=== PATIENT | female | born 1955 | race Caucasian/White ===

== ENCOUNTER → 2016-06-10 | Outpatient (CLI) | payer OTHER ==
[~2016-06-10] MED LIST: LEVO137T3 PO
== END | disposition home or self-care (01) ==
LOC: C.PAPS 10:37
PROVIDERS: ATTEND Obstetrics & Gynecology
DX: Z01.419 Encounter for gynecological examination (general) (routine) without abnormal findings (principal)

== ENCOUNTER → 2017-06-30 | Outpatient (CLI) | payer OTHER ==
--- NOTE | 2017-06-30 11:08 | DIAGNOSTIC IMAGING REPORT ---
CERVICAL SPINE 5 VIEWS CLINICAL HISTORY: Neck pain. FINDINGS: AP, lateral, bilateral oblique, and odontoid views of the cervical spine are obtained. No prior studies are available for comparison at the time of dictation. The skeletal structures are osteopenic. There is no radiographic evidence of fracture or subluxation. The odontoid process and lateral masses appear intact as seen on the open-mouth view. Mild degenerative change is noted at the atlantodental articulation. There is straightening of the cervical lordosis with reversal centered at C5-C6. Vertebral body height is maintained throughout the cervical spine. Minimal anterolisthesis is seen at C3-C4 and C4-C5. Minimal retrolisthesis is present at C5-C6. Anterior osteophytes are seen in the lower cervical region. The spinolaminar line is maintained. The spinous processes appear intact. The neural foramina appear widely patent on the oblique views. Mild disc space narrowing is seen at C5-C6 and C6-C7. The remaining disc spaces are preserved. No large posterior disc osteophyte complex is identified. The prevertebral soft tissues are within normal limits. Partially imaged apical lung parenchyma appears clear. IMPRESSION: 1. No acute bony abnormality is seen involving the cervical spine. 2. Osteopenia and mild spondylotic change as above. Dictated: 06/30/2017 10:55 AM Transcribed: 06/30/2017 11:08 AM Servando Electronically signed by: Rajesh Liu M.D. 06/30/2017 11:09 AM Dictated Date/Time: 06/30/2017 10:55 AM
--- NOTE | 2017-06-30 11:09 | DIAGNOSTIC IMAGING REPORT ---
LUMBAR SPINE 5 VIEWS CLINICAL HISTORY: Low back pain. FINDINGS: Five views of the lumbar spine are obtained. No prior studies are available for comparison at the time of dictation. The skeletal structures are osteopenic. There is no radiographic evidence of fracture or malalignment. Vertebral body height and alignment are maintained throughout the lumbar spine. Anterior osteophytes are seen throughout. The transverse and spinous processes appear intact. There is no evidence of spondylolysis. The disc spaces appear maintained. The bony pelvis appears intact as imaged. Mild sclerotic change is noted in the sacroiliac joints. Surgical clips are present in the pelvis. No bowel obstruction is seen. IMPRESSION: 1. No acute bony abnormality is seen involving the lumbar spine. 2. Osteopenia and mild spondylotic change as above. Dictated: 06/30/2017 10:54 AM Transcribed: 06/30/2017 11:09 AM Servando Electronically signed by: Rajesh Liu M.D. 06/30/2017 11:15 AM Dictated Date/Time: 06/30/2017 10:54 AM
== END | disposition home or self-care (01) ==
LOC: C.RAD 10:25
PROVIDERS: ATTEND Nurse Practitioner Family
DX: M79.602 Pain in left arm (principal); Z98.890 Other specified postprocedural states

== ENCOUNTER → 2017-07-14 | Outpatient (CLI) | payer OTHER ==
--- NOTE | 2017-07-14 15:18 | MAMMOGRAPHY REPORT ---
BILATERAL DIGITAL SCREENING MAMMOGRAM TOMOSYNTHESIS WITH CAD: 07/14/2017 CLINICAL HISTORY: Routine screening examination. TECHNIQUE: Breast tomosynthesis in addition to standard 2D mammography was performed. Current study was also evaluated with a Computer Aided Detection (CAD) system. COMPARISON: Comparison is made to exams dated: 04/30/2016 mammogram, 04/28/2015 mammogram, 12/06/2013 mammogram, 12/01/2012 mammogram, 11/01/2011 mammogram, and 10/15/2010 mammogram - [facility] nter. BREAST COMPOSITION: There are scattered areas of fibroglandular density in both breasts. FINDINGS: No suspicious mass, architectural distortion or cluster of microcalcifications is seen. IMPRESSION: ACR BI-RADS CATEGORY 1: NEGATIVE There is no mammographic evidence of malignancy. A 1 year screening mammogram is recommended. The pa tient will receive written notification of the results. Approximately 10% of breast cancers are not detected with mammography. A negative mammographic report should not delay biopsy if a clinically suggestive mass is present. Gissel forbes/penbelia:07/14/2017 08:50:01 Bender Helper: Jess RAMSAY(Alessandro)(M), [facility] letter sent: Normal 1/2 BI-RADS Code: ACR BI-RADS Category 1: Negative
== END | disposition home or self-care (01) ==
LOC: C.MAMM 07:07
PROVIDERS: ATTEND Obstetrics & Gynecology
DX: Z12.31 Encounter for screening mammogram for malignant neoplasm of breast (principal)

== ENCOUNTER 2020-07-25 08:28 | Inpatient (IN) ==
--- NOTE | 2020-07-10 16:25 | PAT Medication Instructions ---
Medication Instructions Date of Service July 10, 2020 Home Medications levothyroxine 137 mcg tablet 137 mcg PO QAM atorvastatin 10 mg PO HS Take morning of surgery With a small sip of water, OTHERWISE NOTHING TO EAT OR DRINK AFTER MIDNIGHT: levothyroxine 137 mcg tablet 137 mcg PO QAM Take evening before surgery atorvastatin 10 mg PO HS Other Notes If you have any questions please call us at [phone] or [phone] or [phone] or [phone]
--- NOTE | 2020-07-11 12:08 | Anesthesiology Consultation ---
Date of Service July 11, 2020 Assessment & Plan (1) Encounter for pre-operative examination: COVID Status: As of 07/11 assessment, patient denies travel to endemic area, known exposure/sick contacts, or symptoms of COVID19. Patient instructed that they and their household members must follow strict social distancing guidelines, wear a mask in public and avoid travel/events/gatherings for 14 days prior to surgery. Preoperative COVID19 testing to be completed prior to surgery per surgeon's arrangements (pt reports 07/18 at [facility] [place] Patient made aware to self- isolate as much as possible between COVID testing and surgery. Chart Review Chart Review: Acceptable Risk for Surgery and Patient seen in Pre Admission Testing Teaching & Discussion Instructed NPO after midnight before surgery, except medications with 15 cc of water. Medication instructions provided according to the PAT guidelines. History Surgery Operation Date: 06/21/20 07:45 Proposed Procedures p L4-L5 Decompression and Fusion Spinal Cord Monitoring - Kasi Clarke DO Operation Date: 07/25/20 10:05 Proposed Procedures p L4-L5 Decompression Fusion, Spinal Cord Monitoring - Kasi Clarke DO Height/Weight Height: 5 ft 3 in Weight: 60.6 kg Allergies Allergy/AdvReac Type Severity Reaction Status Date / Time bee venom protein (honey bee) Allergy Severe Anaphylaxis Verified 07/07/20 08:26 latex Allergy Intermediate REDNESS, Verified 07/07/20 08:26 ITCHY Sulfa (Sulfonamide Allergy Intermediate HIVES Verified 07/07/20 08:26 Antibiotics) erythromycin base Allergy Mild VOMITING Verified 07/07/20 08:26 codeine AdvReac Mild NAUSEA Verified 07/07/20 08:26 Medications Home Medications Medication Instructions Recorded Confirmed Last Taken levothyroxine 137 mcg tablet 137 mcg PO QAM #90 tab 02/18/19 07/07/20 Unknown atorvastatin 10 mg PO HS 05/30/20 07/07/20 Unknown Past Medical History Medical History (Updated 07/12/20 @ 08:54 by Deyvi Marte) Cancer SQUAMOUS CELL EXCISION Hyperlipidemia Recently started on statin Hypothyroidism Kidney stones Exercise / Class Metabolic Activity II 4-5 Yardwork/Stairs/Walk up hill Past Family History Family History Mother Diabetes Hypertension Renal cell carcinoma Sister Ovarian cancer Aunt Breast cancer Family/Other Myocardial infarction Denies family history of Prostate cancer Colorectal cancer Past Surgical History Surgical History History of back surgery LOWER BACK 2019 History of breast surgery REMOVAL LYMPH NODE-BENIGN History of carpal tunnel release 2007 History of colonoscopy History of neck surgery 2011 History of suburethral sling procedure History of tubal ligation Past Anesthesia History No Hx of Anesthesia Complications and No Family Hx of Anesthesia Complications History of PONV No Hx of PONV and No Hx of Motion Sickness Social History Smoking Status: Former smoker Do You Dip or Chew Tobacco: No Smoking End Date: QUIT Hx Alcohol Use: Yes Alcohol type: wine and hard liquor alcohol intake frequency: holidays/special occasions only Alcohol Intake Frequency Comment: RARELY Hx Substance Use: No Review of Systems Pt denies any recent chest pain, shortness of breath, palpitations, cough, fever, URI, or uncontrolled acid reflux. Physical Exam Vital Signs BP: 147/86 P: 77bpm SPO2: 97% RA T: 98.1 F R: 16 ENMT Mouth: + dental restorations (few crowns on molars); no chipped teeth and no loose teeth Thyromental Distance: < 3.5 Finger Breadths (3) Mallampati Class: II Neck neck extension not limited (but some pain with full extension) Respiratory normal respiratory effort, lungs clear to auscultation Cardiovascular RRR, no murmur, no edema Testing Laboratory Results 07/11/20 12:12 07/11/20 12:12 PT 10.0 Seconds (9.0-12.0) 07/11/20 12:12 INR 1.0 (0.9-1.1) 07/11/20 12:12 APTT 24.5 Seconds (21.0-31.0) 07/11/20 12:12 Urine Color Yellow 07/11/20 Unknown Urine Appearance Clear (Clear) 07/11/20 Unknown Urine pH 6.5 (4.5-7.5) 07/11/20 Unknown Ur Specific [place] 1.008 (1.000-1.030) 07/11/20 Unknown Urine Protein Negative (Negative) 07/11/20 Unknown Urine Glucose (UA) Negative (Negative) 07/11/20 Unknown Urine Ketones Negative (Negative) 07/11/20 Unknown Urine Nitrite Negative (Negative) 07/11/20 Unknown Ur Leukocyte Esterase Negative (Negative) 07/11/20 Unknown Blood Type AB Negative 07/11/20 12:12 Antibody Screen NEGATIVE 07/11/20 12:12 Electrocardiogram Date: 07/11/20 Findings: + NSR @ (73bpm) Diffuse nonspecific ST abnormality. No significant change compared to 10/23/18. Chest X-Ray Date: 07/11/20 Findings: + NAD
--- NOTE | 2020-07-11 12:51 | XRay Report ---
XR chest Pre-admission PA/Lat CLINICAL HISTORY: Preoperative chest COMPARISON STUDY: 12/05/2015 FINDINGS: The heart is normal in size. There is no failure. There is no focal pulmonary consolidation . There are no pleural effusions. There is aortic tortuosity.[ IMPRESSION: No active disease in the chest. ACT 112: Negative or not required by law. Electronically signed by: Surendra Arzate M.D. 07/11/2020 12:50 PM
[2020-07-11 13:36] LABS: Basophils # (auto) 0.05 K/uL (0-0.2); Eosinophils # (auto) 0.21 K/uL (0-0.5); Eosinophils % (auto) 4.2 %; Hematocrit (blood only) 40.1 % (37-47); Hemoglobin 13.6 g/dL (12.0-16.0); Immature Granulocytes # (auto) 0.01 K/uL (0.00-0.02); Immature Granulocytes % (auto) 0.2 %; Lymphocytes # (auto) 2.07 K/uL (1.2-3.4); Mean Corpuscular Hemoglobin 31.3 pg (25-34); Mean Corpuscular Hgb Conc 33.9 g/dL (32-36); Mean Corpuscular Volume 92.4 fL (80-100); Mean Platelet Volume 9.5 fL (7.4-10.4); Monocytes # (auto) 0.45 K/uL (0.11-0.59); Monocytes % (auto) 8.9 %; Neutrophils # (auto) 2.26 K/uL (1.4-6.5); Neutrophils % (auto) 44.7 %; Platelet Count 315 K/uL (130-400); RDW Coefficient of Variation 13.3 % (11.5-14.5); RDW Standard Deviation 45.5 fL (36.4-46.3); Red Blood Count 4.34 M/uL (4.2-5.4); White Blood Count 5.05 K/uL (4.8-10.8)
[2020-07-11 13:50] LABS: Appearance Urine Clear (Clear); Bilirubin Urine Negative (Negative); Blood Urine Negative (Negative); Color Urine Yellow; Glucose Urine UA Negative (Negative); Ketones Urine Negative (Negative); Leukocyte Esterase Urine Negative (Negative); Nitrite Urine Negative (Negative); Protein Urine Negative (Negative); Specific Gravity Urine 1.008 (1.000-1.030); Urobilinogen Urine Negative (Negative); pH Urine 6.5 (4.5-7.5)
[2020-07-11 13:53] LABS: Partial Thromboplastin Ratio 0.9; Partial Thromboplastin Time 24.5 Seconds (21.0-31.0)
--- NOTE | 2020-07-11 13:58 | Electrocardiogram Report ---
Test Reason : Blood Pressure : / mmHG Vent. Rate : 073 BPM Atrial Rate : 073 BPM P-R Int : 138 ms QRS Dur : 088 ms QT Int : 410 ms P-R-T Axes : -27 053 -47 degrees QTc Int : 451 ms Normal sinus rhythm Diffuse Nonspecific ST abnormality Abnormal ECG When compared with ECG of 23-OCT-2018 09:03, No significant change Confirmed by Alberto Bella ([id number]) on 07/11/2020 1:58:12 PM Referred By: Kasi Clarke Confirmed By:Alberto Bella
[2020-07-11 14:08] LABS: BUN Creatinine Ratio 17.6 (10-20); Calcium 9.1 mg/dl (8.5-10.1); Creatinine Clr Calc Pharmacy 80.7 ml/min; Est GFR (African American) 113.1; Est GFR (Non-African American) 97.5; Potassium 3.7 mmol/L (3.5-5.1)
[~2020-07-25 08:28] MED LIST changes: +ACETAMINOPHEN 500 MG TAB PO SCH; +CeleBREX 200 MG CAP PO SCH; +GABAPENTIN 600 MG DOSE PO SCH; -LEVO137T3 PO; +LR 15ML/HR IV SCH; +ceFAZolin 1000MG 1,000 MG/7.5 ML SYR IV SCH
[2020-07-25] MEDS ORDERED: MEPERIDINE HCL 25 MG/ML CARP/VIAL IV PRN (09:22)
[2020-07-25] MEDS ORDERED: PHENYLEPHRINE 100MCG/ML 5ML SYR IV PRN (09:22)
[2020-07-25] MEDS ORDERED: ATROPINE SULFATE 0.1 MG/ML 10ML SYR IV PRN (09:22)
[2020-07-25] MEDS ORDERED: ePHEDrine sulfate 50 MG/ML AMP IV PRN (09:22)
[2020-07-25] MEDS ORDERED: HYDROmorphone INJ 1 MG/ML SYRINGE IV PRN ×2 (09:22→13:19)
[2020-07-25] MEDS ORDERED: ONDANSETRON INJ 2 MG/ML 2 ML VIAL IV PRN ×2 (09:22→13:19)
[2020-07-25] MEDS ORDERED: LABETALOL HCL IV 5 MG/ML 20ML IV PRN (09:22)
[2020-07-25] MEDS ORDERED: MIDAZOLAM HCL 1 MG/ML 2ML VIAL ONE (09:33)
[2020-07-25] MEDS ORDERED: fentaNYL citrate 100 MCG/2 ML VIAL ONE (09:33)
--- NOTE | 2020-07-25 09:57 | History & Physical Bridge Note ---
Date of Service July 25, 2020 History & Physical Bridge Note I have examined the patient, reviewed the History & Physical and in the interval since the performance of the History & Physical I have noted the following changes of clinical significance: no changes noted
--- NOTE | 2020-07-25 09:58 | History & Physical Report ---
Date of Service July 25, 2020 Assessment & Plan (1) Neurogenic claudication due to lumbar spinal stenosis: Admission and Anticipated Discharge Date Admission Date: L4-L5 decompression fusion History of Present Illness Chief Complaint: Back and bilateral leg pain Primary Care Provider: LIZZY Hurd This is a 65-year-old female who presents with chronic persistent back and bilateral leg pain. After failing course of nonoperative care is here for surgical invention. Allergies Allergy/AdvReac Type Severity Reaction Status Date / Time bee venom protein (honey bee) Allergy Severe Anaphylaxis Verified 07/25/20 08:46 latex Allergy Intermediate REDNESS, Verified 07/25/20 08:46 ITCHY Sulfa (Sulfonamide Allergy Intermediate HIVES Verified 07/25/20 08:46 Antibiotics) erythromycin base Allergy Mild VOMITING Verified 07/25/20 08:46 codeine AdvReac Mild NAUSEA Verified 07/25/20 08:46 Home Medications Medication Instructions Recorded Confirmed Type levothyroxine 137 mcg tablet 137 mcg PO QAM #90 tab 02/18/19 07/25/20 History atorvastatin 10 mg PO HS 05/30/20 07/25/20 History Past Med/Surg History Medical History (Updated 07/25/20 @ 09:58 by Kasi Clarke DO) Cancer SQUAMOUS CELL EXCISION Hyperlipidemia Recently started on statin Hypothyroidism Kidney stones Surgical History History of back surgery LOWER BACK 2019 History of breast surgery REMOVAL LYMPH NODE-BENIGN History of carpal tunnel release 2007 History of colonoscopy History of neck surgery 2011 History of suburethral sling procedure History of tubal ligation Family History Mother Diabetes Hypertension Renal cell carcinoma Sister Ovarian cancer Aunt Breast cancer Family/Other Myocardial infarction Denies family history of Prostate cancer Colorectal cancer Social History Smoking Status: Former smoker Smoking End Date: QUIT ; Second Hand Exposure: No; Do You Dip or Chew Tobacco: No; Hx Alcohol Use: Yes Alcohol type: wine and hard liquor Hx Substance Use: No Preferred Language: Yakut Communication Ability: Effective [employer] Supervisor Required: No Beliefs That Will Affect Care: None Current Living Situation: Family Other Information That Helps Us Care for You: No Feels Safe at Home: Yes Safety Concerns: Feels Safe At This Time Assistive Devices: Glasses Physical Exam Physical Exam: Patient is alert and oriented Heart regular rhythm Lungs clear to auscultation Results & Data ([facility]) Vital Signs (Past 12 Hours) Vital Signs Temp Pulse Resp BP Pulse Ox 07/25/20 08:52 37.2 C 80 18 168/87 H 96
[2020-07-25] MEDS ORDERED: BUPIVACAINE/EPINEPHRINE 0.5% MPF 1:200,000 30 ML VIAL ONE (10:02)
[2020-07-25] MEDS ORDERED: BACITRACIN INJ 50,000 UNIT VIAL ONE (10:03)
[2020-07-25] MEDS ORDERED: PROPOFOL IV EMULSION 10 MG/ML 20 ML VIAL IV ONE (10:44)
[2020-07-25] MEDS ORDERED: ROCURONIUM BROMIDE 10 MG/ML 5 ML VIAL IV ONE (10:44)
[2020-07-25] MEDS ORDERED: LIDOCAINE HCL 2% 2 ML VIAL/AMP(20MG/ML) INFIL ONE (10:44)
[2020-07-25] MEDS ORDERED: DEXAMETHASONE SOD INJ 4 MG/ML VIAL ONE (10:45)
[2020-07-25] MEDS ORDERED: ONDANSETRON INJ 2 MG/ML 2 ML VIAL ONE (10:45)
[2020-07-25] MEDS ORDERED: ePHEDrine sulfate 50 MG/ML AMP ONE (10:57)
[2020-07-25] MEDS ORDERED: FLOSEAL HEMOSTATIC MATRIX 10ML TOP ONE (11:34)
[2020-07-25] MEDS ORDERED: GLYCOPYRROLATE 0.2 MG/ML VIAL ONE (11:40)
[2020-07-25] MEDS ORDERED: NEOSTIGMINE METHYLSULFATE 1 MG/ML 10ML VIAL ONE (11:40)
--- NOTE | 2020-07-25 11:47 | Operative Report ---
Post Operative Report Pre & Post Diagnosis Operation Date: 06/21/20 07:45 <No data on this case meets the specified criteria> Operation Date: 07/25/20 10:05 Pre-Op Diagnosis: Neurogenic Claudication due to Lumbar Spinal Stenosis Post-Op Diagnosis: Neurogenic Claudication due to Lumbar Spinal Stenosis I identified the patient and participated in the time-out.: Yes Procedure Operation Date: 06/21/20 07:45 <No data on this case meets the specified criteria> Operation Date: 07/25/20 10:05 Actual Procedures #1 Revision decompression with bilateral medial facetectomies and foraminotomies L3-4 and L4-5 per #2 posterior spinal fusion L4-5 per #3 placement posterior instrumentation L4-5 per #4 interbody fusion L4-5 per #5 placed a peek cage 10 x 22 mm at L4-5 per #6 placement of locally harvested morselized autograft in the posterior gutters. #7 placement infuse collagen sponge, master graft in the posterior lateral gutters and osteopenic body space. Surgeon Kasi Clarke, Registered Dental Assistant Rda [place] De Leon Estimated Blood Loss 50 Findings Consistent with Post-Op Diagnosis Specimens None Indications This is a 65-year-old female who presents with above-mentioned diagnosis after failing course of nonoperative care is here for the above-mentioned procedure. Description of Procedure Patient was met with identified informed consent obtained. Patient was then taken to the operative suite underwent a patient placed in a prone position the [facility] top Shar frame. All bony prominences well-padded eyes inspected to ensure no external pressure placed upon the. This point the lumbar spine was prepped and draped no sterile fashion. Sharp dissection with the assistance of Bovie cautery performed down to and exposing the remaining lamina and transverse processes of L4 and L5. And then performed a revision complete laminectomy of L4 partial laminectomy of L3 including bilateral medial facetectomies and foraminotomies addressing severe spinal stenosis. Pedicle screws were then placed in L4 and L5 bilaterally with assistance of fluoroscopy and appropriate sized julio placed. By way of a transforaminal approach on the right a complete discectomy was performed endplates curetted to subcortical being bone and a 10 x 22 mm peek cage filled with osteobone graft tapped position. The rods were then locked in final position bilaterally. The transverse processes of L4 and L5 burred to subcortical bleeding bone. Infuse collagen sponge master graft local autograft was placed in the posterior gutters. 15 round ESTHER drain inserted. The incision was then closed with 1 Vicryl to fascia 2-0 Vicryl subcutaneously and 4 Monocryl for final skin closure. Steri-Strip sterile dressings placed. Patient will continue PACU stable condition. Please note spinal cord monitoring was utilized at the procedure no changes noted. Bee De Leon was present during the entire surgery and while the patient positioning complex portions of the surgery and final skin closure. I attest to the content of the Intraoperative Record and any orders documented therein. Any exceptions are noted below.
[2020-07-25] MEDS: fentaNYL citrate 100 MCG/2 ML VIAL IV PRN ×3 (12:14→12:45)
--- NOTE | 2020-07-25 12:22 | Fluoroscopy Report ---
FL lumbar spine 2-3V HISTORY: 65 years-old Female L4-L5 DECOMPRESSION AND FUSION chronic low back pain. Status post decom pression and fusion COMPARISON: Lumbar spine MRI 04/10/2020. TECHNIQUE: 2 spot fluoroscopic images of the lumbar spine were obtained utilizing 21.5 seconds fluoro scopy time FINDINGS: Posterior interbody julio and screw fusion with discectomy changes at L4-L5. There remains a few millim eters of posterior listhesis L4 on L5 with otherwise satisfactory alignment. No acute fracture or ret ained foreign body. Multilevel spondylitic spurring. IMPRESSION: Fluoroscopic assistance as above. ACT 112: Negative or not required by law. The above report was generated using voice recognition software. It may contain grammatical, syntax o r spelling errors. Electronically signed by: David Salinas M.D. 07/25/2020 12:20 PM
--- NOTE | 2020-07-25 13:06 | Anesthesiology Progress Note ---
Date of Service July 25, 2020 Anesthesia Post Procedure Vital Signs Vital Signs: Temp Pulse Pulse Resp BP BP Pulse Ox 07/25/20 12:50 36.4 C L 54 L 12 133/87 100 07/25/20 12:40 56 L 12 145/79 H 100 07/25/20 12:30 56 L 16 139/82 100 07/25/20 12:20 56 L 14 137/77 100 07/25/20 12:10 70 12 148/86 H 100 07/25/20 12:02 36.1 C L 88 16 161/92 H 100 07/25/20 08:52 37.2 C 80 18 168/87 H 96 Pain Intensity Back: Pain Intensity: 2 Transfer of Care Handoff Completed per policy Notes Mental Status: alert / awake / arousable Patient Amnestic to Procedure: Yes Nausea / Vomiting: adequately controlled Pain: adequately controlled Airway Patency, RR, SpO2: stable & adequate BP & HR: stable & adequate Hydration State: stable & adequate Anesthetic Complications: no major complications apparent and Pt Satisfied with anesthetic care
[2020-07-25] MEDS ORDERED: NALOXONE HCL 0.4 MG/1 ML VIAL/CARP IV PRN (13:19)
[2020-07-25] MEDS ORDERED: ALUMINUM/MAGNESIUM SUSP 30 ML UDC PO PRN (13:19)
[2020-07-25] MEDS ORDERED: traMADol HCL 50 MG TABLET PO PRN (13:19)
[2020-07-25] MEDS ORDERED: ACETAMINOPHEN 500 MG TAB PO PRN (13:19)
[2020-07-25] MEDS ORDERED: FAMOTIDINE 20 MG TAB PO PRN (13:19)
[2020-07-25] MEDS ORDERED: DO NOT ADMINISTER PNEUMOCOCCAL VACCINE PRN (13:19)
[2020-07-25] MEDS ORDERED: ACETAMINOPHEN 1,000 MG/100 ML VIAL IV PRN (13:19)
[2020-07-25] MEDS ORDERED: ONDANSETRON 4 MG OD TAB PO PRN (13:19)
[2020-07-25] MEDS ORDERED: LORazepam 0.5 MG TAB PO PRN (13:19)
[2020-07-25] MEDS ORDERED: HYDROmorphone INJ 0.5 MG/0.5 ML SYR IV PRN (13:19)
[2020-07-25] MEDS ORDERED: DO NOT ADMINISTER FLU VACCINE PRN (13:19)
[2020-07-25] MEDS ORDERED: MAGNESIUM HYDROXIDE SUSP 30 ML UDC PO PRN (13:19)
[2020-07-25] MEDS ORDERED: LORazepam 0.5 MG/1 ML VIAL IV PRN (13:19)
[2020-07-25] MEDS ORDERED: hydrOXYzine HCl 25 MG TAB PO PRN (13:19)
[2020-07-25] MEDS ORDERED: METOCLOPRAMIDE HCL INJ 5 MG/ML 2 ML VIAL IV PRN (13:19)
[2020-07-25] MEDS ORDERED: PROMETHAZINE HCL 12.5 MG in SODIUM CHLORIDE 0.9% 50 ML IV PRN (13:19)
[2020-07-25] MEDS ORDERED: diphenhydrAMINE Capsule 25 MG CAP PO PRN (13:19)
[2020-07-25] MEDS ORDERED: SOD PHOSPHATE/SOD BIPHOSPHATE ENEMA 132 ML BTL PR PRN (13:19)
[2020-07-25] MEDS: oxyCODONE HCL IR 5 MG TAB (IMMEDIATE RELEASE) PO PRN ×2 (13:57→23:38)
[2020-07-25] MEDS: LACTATED RINGER'S 1,000 ML IV SCH ×2 (14:01→23:24)
[2020-07-25] MEDS: KETOROLAC TROMETHAMINE 15 MG/ML VIAL IV SCH ×2 (14:05→20:34)
[2020-07-25] MEDS: ceFAZolin 2000MG 2,000 MG/15 ML SYR IV SCH (17:47)
[2020-07-25] MEDS: DOCUSATE SODIUM/SENNA 50/8.6MG TAB PO SCH (20:34)
[2020-07-25] MEDS: ATORVASTATIN 10 MG TAB PO SCH (20:34)
[2020-07-26] MEDS: ceFAZolin 2000MG 2,000 MG/15 ML SYR IV SCH (01:29)
[2020-07-26] MEDS: KETOROLAC TROMETHAMINE 15 MG/ML VIAL IV SCH ×2 (01:36→07:48)
[2020-07-26] MEDS: LEVOTHYROXINE SODIUM 137 MCG TABLET PO SCH (05:40)
[2020-07-26 07:15] LABS: Basophils # (auto) 0.03 K/uL (0-0.2); Basophils % (auto) 0.4 %; Eosinophils # (auto) 0.12 K/uL (0-0.5); Eosinophils % (auto) 1.6 %; Hematocrit (blood only) 34.9 % (37-47); Hemoglobin 11.6 g/dL (12.0-16.0); Immature Granulocytes # (auto) 0.01 K/uL (0.00-0.02); Immature Granulocytes % (auto) 0.1 %; Lymphocytes # (auto) 2.21 K/uL (1.2-3.4); Lymphocytes % (auto) 28.8 %; Mean Corpuscular Hemoglobin 31.1 pg (25-34); Mean Corpuscular Hgb Conc 33.2 g/dL (32-36); Mean Corpuscular Volume 93.6 fL (80-100); Mean Platelet Volume 9.1 fL (7.4-10.4); Monocytes # (auto) 0.75 K/uL (0.11-0.59); Monocytes % (auto) 9.8 %; Neutrophils # (auto) 4.56 K/uL (1.4-6.5); Neutrophils % (auto) 59.3 %; Platelet Count 229 K/uL (130-400); RDW Coefficient of Variation 13.3 % (11.5-14.5); RDW Standard Deviation 46.1 fL (36.4-46.3); Red Blood Count 3.73 M/uL (4.2-5.4); White Blood Count 7.68 K/uL (4.8-10.8)
[2020-07-26 07:45] LABS: BUN Creatinine Ratio 12.6 (10-20); Calcium 8.5 mg/dl (8.5-10.1); Creatinine Clr Calc Pharmacy 88.2 ml/min; Est GFR (African American) 116.4; Est GFR (Non-African American) 100.4; Potassium 3.8 mmol/L (3.5-5.1)
[2020-07-26] MEDS: oxyCODONE HCL IR 5 MG TAB (IMMEDIATE RELEASE) PO PRN ×2 (08:35→19:38)
[2020-07-26] MEDS: POLYETHYLENE (MIRALAX) 17 GM PACK PO SCH ×4 (11:56→19:38)
--- NOTE | 2020-07-26 12:00 | Orthopedic Progress Note ---
Date of Service July 26, 2020 Assessment & Plan (1) Neurogenic claudication due to lumbar spinal stenosis: Admission and Anticipated Discharge Date Admission Date: July 25, 2020 This time we will continue physical therapy monitor her ESTHER output anticipate discharge home in next few days. Subjective Back pain is controlled leg pain markedly improved. Physical Exam Physical Exam: Patient is good strength testing appears comfortable. Results & Data ([facility]) Vital Signs (Past 12 Hours) Vital Signs Temp Pulse Resp BP Pulse Ox 07/26/20 07:33 36.7 C 68 16 130/80 100 07/26/20 02:35 37 C 65 16 102/59 L 98
[2020-07-26] MEDS: ATORVASTATIN 10 MG TAB PO SCH (19:39)
[2020-07-26] MEDS: DOCUSATE SODIUM/SENNA 50/8.6MG TAB PO SCH (19:39)
[2020-07-27] MEDS: oxyCODONE HCL IR 5 MG TAB (IMMEDIATE RELEASE) PO PRN ×2 (02:21→06:21)
[2020-07-27] MEDS: POLYETHYLENE (MIRALAX) 17 GM PACK PO SCH ×2 (05:37→13:07)
[2020-07-27] MEDS: LEVOTHYROXINE SODIUM 137 MCG TABLET PO SCH (05:38)
[2020-07-27] MEDS ORDERED: bisacodyL 10 MG SUPP PR PRN (11:47)
--- NOTE | 2020-07-27 12:11 | Discharge Summary ---
Date of Service July 27, 2020 Admission HPI Per Admitting Provider This is a 65-year-old female who presents with chronic persistent back and bilateral leg pain. After failing course of nonoperative care is here for surgical invention. Principal Diagnosis Lumbar spinal stenosis with neurogenic claudication Discharge Data Allergies Allergy/AdvReac Type Severity Reaction Status Date / Time bee venom protein (honey bee) Allergy Severe Anaphylaxis Verified 07/25/20 08:46 latex Allergy Intermediate REDNESS, Verified 07/25/20 08:46 ITCHY Sulfa (Sulfonamide Allergy Intermediate HIVES Verified 07/25/20 08:46 Antibiotics) erythromycin base Allergy Mild VOMITING Verified 07/25/20 08:46 codeine AdvReac Mild NAUSEA Verified 07/25/20 08:46 Consultations 07/25/20 13:19 Consult Case Management - Discharge Planning Routine Procedures Performed Operation Date: 06/21/20 07:45 <No data on this case meets the specified criteria> Operation Date: 07/25/20 10:05 Actual Procedures p L4-L5 Decompression Fusion, Spinal Cord Monitoring(Not Applicable) - Kasi Clarke DO Ordered Studies 07/25/20 10:05 FL fluoroscopy <1hr Routine FL lumbar spine 2-3V Routine Hospital Course (1) Neurogenic claudication due to lumbar spinal stenosis: Patient went lumbar decompression fusion tolerated so was taken to orthopedic for postoperative. Postop day 1 she was up and ambulating. Per the postop day #2 ESTHER drain decreasing probably. Excellent strength testing. Pain well controlled. Subsequently discharged home. Discharge orders and instructions found the chart for further review. 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 You may walk to your tolerance. It is good exercise for your legs and back. Expect some back and intermittent leg aches and pains. 2. You may perform "counter-top" level activities (make a sandwich, delfino with a project, etc.). 3. No bending or lifting of more than 10 pounds or back twisting of any nature (roll like a log when turning in bed). 4. You may ride in a car for 20-30 minutes at a time. No driving until after your first visit with your doctor. 5. Frequent changes of position and restricting sitting to 30 minutes at a time will help limit the amount of back spasms and stiffness you may experience. 6. You may discontinue the use of ambulatory aids (cane, crutches, etc.) once your strength and confidence allow. 7. You may buffing machine tender the shower and let water strike your incision when you arrive home at least once daily. Do not take a tub bath, sit in a hot tub or go into a swimming pool until after your first recheck in the office. SPECIAL CARE INSTRUCTIONS: VERY IMPORTANT TO READ AND REVIEW A. Your surgical incision has been closed with a cosmetic suture under the skin that will dissolve in about 6 weeks. In 14 days, you can use a pair of clean scissors and cut the suture that is left outside of the skin at the ends of your incision. 1. The small skin tapes can be removed 7 days after surgery if they have not fallen off by that point. 2. You may keep the wound open to air as much as possible to promote healing after post-op day number 5 unless told otherwise by your doctor. 3. If you think the wound looks like it is becoming infected (redness or worsening drainage) and/or you are experiencing fever, chill or worsening back pain and muscle spasms, contact the office so that we may evaluate you as soon as possible. B. Complications are uncommon, but please contact us if you have any signs or symptoms of: 1. wound infection (fever higher than 102.5 degrees F, redness, separation of wound, drainage, or increasing pain from the incision) 2. blood clots in legs (pain, swelling, redness and warmth in legs) 3. urinary tract infection (fever higher than 102.5 degrees F, burning upon urination or increased frequency of urination) 4. nerve problems (inability to walk on your toes or heels, numbness, loss of bowel or bladder control) 5. any other symptoms that concern you C. Please call the office at if you have any concerns or questions about your operation or recovery. D. No smoking! Smoking drastically decreases the chance of a solid fusion. E. Do not take any anti-inflammatory medications (Indocin, Advil, Motrin, Aspirin, Naprosyn, etc.) as these may inhibit the chance of a solid fusion. Tylenol is okay to take for pain. MANAGING PAIN AFTER SPINAL SURGERY 1. Narcotic medication is intended for short-term use and will be provided for surgical pain. Surgical pain usually lasts for a period of 4-6 weeks. Narcotic medication includes Percocet, Vicodin, Darvocet, Tylenol #3 or Lortab. 2. Longer-term pain is more appropriately treated with non-narcotic medication such as Tylenol ES. 3. Muscle spasm is not appropriately treated with narcotics. Muscle relaxers such as Soma, Flexeril or Skelaxin can be used along with Tylenol ES. 4. Remember that we all live with some "aches and pains". This is not unusual or uncommon after an injury or as we get older. a. Back pain is expected and may include muscle spasms for 4 to 6 weeks after surgery. The pain should gradually improve. If the pain worsens for no apparent reason, please contact the office. b. Intermittent leg pain may also be experienced and should not be concerned about unless it worsens for no apparent reason. If so, please contact the office. 5. We will provide appropriate medication within the normal guidelines of their prescribed use. We will also be very cautious and aware of potential abuse and extended duration of patients' medication needs. a. Pain medications are for your comfort and to assist with sleep and rest so that the tissue can heal. They are not provided in order to return to normal activity and should not be used through the day. To do so or worsening pain at night can result from ongoing tissue damage and development of tolerance to the prescribed medicine. 6. Please allow 2-3 days to process refills. Prescriptions will not be mailed but must be picked up at the office. FOLLOW UP VISIT: Keep your scheduled follow-up appointment. Any questions, please call the office at . Pending Studies at Discharge: No Stand-Alone Forms: My [employer], Smoking Cessation Medications and DC Order Prescriptions: New oxycodone 5 mg tablet 5 mg PO Q6H PRN (Reason: pain, severe) Qty: 20 RF: 0 tramadol 50 mg tablet 50 mg PO Q6H PRN (Reason: pain, moderate) Qty: 30 RF: 0 Continued levothyroxine 137 mcg tablet 137 mcg PO QAM Qty: 90 RF: 0 atorvastatin 10 mg Tablet 10 mg PO HS RF: 0 Discharge Orders: Discharge Order (Routine); Ordered 07/27/20 Ordered By: Kasi Clarke Admission Data Admit Date/Time: 07/25/20 12:12 Attending Provider: Kasi Clarke Admit Provider: Kasi Clarke Primary Care Provider: Debbie Valadez
== END 2020-07-27 14:10 | disposition home or self-care (01) | DRG 455 ==
LOC: ASU 08:28 → 3E 12:12